=== PATIENT | female | born 1995 | race Caucasian/White ===

== ENCOUNTER 2020-11-23 18:17 | Emergency (ER) | payer MEDICAID ==
[~2020-11-23] VITALS: Ht 165.1 cm; Wt 59.0 kg
[2020-11-23] MEDS ORDERED: ACETAMINOPHEN 325MG TABLET PO ONE (18:45)
[2020-11-23] MEDS ORDERED: SODIUM CHLORIDE 0.9% 1,000 ML IV ONE ×2 (18:45→21:15)
[2020-11-23 19:19] LABS: BASOPHILS % 0.4 % (0.0-2.0); EOSINOPHILS % 1.6 % (0.0-5.0); LYMPHOCYTES % 15.6 % (20.0-50.0); MEAN CORPUSCULAR HEMOGLOBIN 31.5 pg (28.0-32.0); MEAN CORPUSCULAR VOLUME 94.4 fL (81.0-99.0); MEAN PLATELET VOLUME 8.4 fl (7.4-10.4); MONOCYTES % 6.2 % (2.0-8.0); NEUTROPHILS % 76.2 % (40.0-76.0); PLATELET 309 x1000/uL (130-400); RED BLOOD CELL COUNT 3.49 mill/uL (4.2-5.4); RED CELL DISTRIBUTION WIDTH 12.8 % (11.6-14.6)
[2020-11-23 19:26] LABS: CHLORIDE 106 mEq/L (98-107)
[2020-11-23 19:54] LABS: B-HCG QUANTITATIVE 51411 mIU/mL (<3)
[2020-11-23] MEDS ORDERED: ACET-2708 MT (22:24)
[2020-11-23 22:30] VITALS: BP 104/53
== END 2020-11-23 23:14 | disposition home or self-care (01) ==
LOC: ER 18:17
DX: O03.4 Incomplete spontaneous abortion without complication (principal); Z3A.01 Less than 8 weeks gestation of pregnancy
CPT/HCPCS: 36415; 76801; 76817; 80053; 84702; 85025; 86850; 86900; 86901; 96360; 96361; 99285; J7030